=== PATIENT | female | born 1975 | race Caucasian/White ===

== ENCOUNTER 2021-02-22 17:47 | Emergency (ER) | payer BC ==
[~2021-02-22] VITALS: Ht 157.5 cm; Wt 56.4 kg
[2021-02-22] MEDS ORDERED: SODIUM CHLORIDE FLUSH 10ML SYR IVF ONE (18:30)
[2021-02-22 19:01] LABS: BASOPHILS % (AUTO) 0 % (0-1); EOSINOPHILS % (AUTO) 2 % (1-7); LYMPHOCYTES % (AUTO) 16 % (22-44); MEAN CORPUSCULAR HEMOGLOBIN 31.6 pg (27.0-34.8); MEAN CORPUSCULAR HGB CONC 34.6 g/dL (32.4-35.8); MEAN PLATELET VOLUME 6.3 fL (7.4-10.4); MONOCYTES % (AUTO) 6 % (2-9); NEUTROPHILS % (AUTO) 76 % (42-75); PLATELET COUNT 270 x10^3/uL (130-400); RED BLOOD COUNT 4.91 x10^6/uL (3.82-5.3); RED CELL DISTRIBUTION WIDTH 12.8 % (9.6-15.2)
[2021-02-22 19:04] LABS: ALANINE AMINOTRANSFERASE 25 U/L (12-78); ALBUMIN 3.9 g/dL (3.4-5.0); CALCIUM 9.2 mg/dL (8.5-10.1); CREATININE 0.67 mg/dL (0.55-1.02)
[2021-02-22 19:09] LABS: ALKALINE PHOSPHATASE 45 U/L (45-117); BILIRUBIN,TOTAL 0.5 mg/dL (0.2-1.0); TOTAL PROTEIN 7.5 g/dL (6.4-8.2)
[2021-02-22 19:11] LABS: MICROSCOPIC NOT IND
[2021-02-22 19:12] LABS: ANION GAP 3 mmol/L (5-15); CHLORIDE 109 mmol/L (98-107)
--- NOTE | 2021-02-22 19:30 | NUR ---
BACK TO ROOM FROM LOBBY
--- NOTE | 2021-02-22 19:36 | NUR ---
CC OF LLQ ABD PAIN STARTING AT 0400, DENIES URINARY SYMPTOMS. STATES GET OVARIAN CYSTS MONTHLY ON LEFT SIDE BUT THIS PAIN FEELS DIFFERENT. +CHILLS. SO AT BEDSIDE. SENT FROM PCP.
[2021-02-22] MEDS ORDERED: MORPHINE SULFATE 4 MG/ML, 1ML ONE (21:08)
[2021-02-22] MEDS ORDERED: ONDANSETRON 2MG/ML, 2ML ONE (21:08)
[2021-02-22] MEDS ORDERED: ONDANSETRON 2MG/ML, 2ML IVPush ONE ×2 (21:30→22:00)
[2021-02-22] MEDS ORDERED: METRONIDAZOLE PMX 500MG/100ML 100 ML IV ONE (21:30)
[2021-02-22] MEDS ORDERED: OMNIPAQUE 350 MG/ML, 100ML BOTTLE ONE (21:30)
[2021-02-22] MEDS ORDERED: MORPHINE SULFATE 4 MG/ML, 1ML IVPush ONE (21:30)
[2021-02-22] MEDS ORDERED: SODIUM CHLORIDE 0.9%, 500ML IVBOLUS ONE (21:30)
[2021-02-22] MEDS ORDERED: AMPICILLIN/SULBACTAM 3 GM in SODIUM CHLORIDE 0.9% 100 ML IV ONE (21:30)
[2021-02-22] MEDS ORDERED: METRONIDAZOLE PMX 500MG/100ML 100 ML ONE (21:30)
[2021-02-22] MEDS ORDERED: HYDROcodone/APAP 5/325 TABLET PO PRN (22:00)
[2021-02-22] MEDS ORDERED: HYDROcodone/APAP 5/325 TABLET ONE (23:26)
[2021-02-22 23:29] VITALS: BP 111/73
== END 2021-02-22 23:31 | disposition home or self-care (01) ==
LOC: ED 18:17
DX: K57.32 Diverticulitis of large intestine without perforation or abscess without bleeding (principal); R10.32 Left lower quadrant pain
CPT/HCPCS: 36415; 74177; 80053; 81003; 83690; 84703; 85025; 96365; 96366; 96368; 96375; 99285; J0295; J2270; J2405; J7040; Q9967